=== PATIENT | male | born 1950 | race Caucasian/White ===

== ENCOUNTER 2017-03-21 13:19 | Emergency (ER) | payer OTHER ==
[~2017-03-21] VITALS: Ht 185.4 cm; Wt 95.3 kg
[2017-03-21] MEDS ORDERED: TETANUS-DIPTH-ACEL PERTUSSIS 0.5ML SYRG IM ONE (14:00)
[2017-03-21] MEDS ORDERED: LIDOCAINE 2%HCL (LOCAL ANESTH.) INJ 20ML MDV ID ONE (14:00)
[2017-03-21] MEDS ORDERED: BACITRACIN TOP OINT 1 UD PKG TOP ONE (14:00)
[2017-03-21 15:19] VITALS: BP 165/89
== END 2017-03-21 15:39 | disposition home or self-care (01) ==
LOC: ER 13:27
DX: S01.01XA Laceration without foreign body of scalp, initial encounter (principal); W01.0XXA Fall on same level from slipping, tripping and stumbling without subsequent striking against object, initial encounter; Y93.89 Activity, other specified; Y92.098 Other place in other non-institutional residence as the place of occurrence of the external cause; Y99.8 Other external cause status; Z88.0 Allergy status to penicillin; Z23 Encounter for immunization
CPT/HCPCS: 12005; 70450; 90471; 90715

== ENCOUNTER 2018-01-07 10:45 | Emergency (ER) | payer OTHER ==
[~2018-01-07] VITALS: Ht 182.9 cm; Wt 95.3 kg
[2018-01-07] MEDS: ceFAZolin 1GM/50ML 50 ML IV ONE (12:01)
[2018-01-07] MEDS: NEOMYCIN-BACITRACIN-POLYM UNITDOSE PKG TOP OINT TOP ONE (12:03)
[2018-01-07] MEDS: LIDOCAINE 1% (LOCAL ANESTH.) PF 5ml SDV ID ONE (12:03)
[2018-01-07 13:30] VITALS: BP 122/63
[2018-01-07] MEDS: KETOROLAC TROMETH 30 MG/ML 1ML VIAL IV ONE (14:48)
== END 2018-01-07 15:26 | disposition home or self-care (01) ==
LOC: ER 10:46
DX: S71.111A Laceration without foreign body, right thigh, initial encounter (principal); E78.5 Hyperlipidemia, unspecified; E07.9 Disorder of thyroid, unspecified; Z88.0 Allergy status to penicillin; W31.89XA Contact with other specified machinery, initial encounter; Y93.89 Activity, other specified; Y99.8 Other external cause status; Y92.89 Other specified places as the place of occurrence of the external cause
CPT/HCPCS: 12032; 96365; 96375; 99284; J0690; J1885

== ENCOUNTER 2018-01-09 11:06 | Emergency (ER) | payer OTHER ==
[~2018-01-09] VITALS: Ht 182.9 cm; Wt 95.3 kg
[2018-01-09 11:16] VITALS: BP 148/74
== END 2018-01-09 11:41 | disposition home or self-care (01) ==
LOC: ER 11:06
DX: S71.111D Laceration without foreign body, right thigh, subsequent encounter (principal); Z48.01 Encounter for change or removal of surgical wound dressing; Z88.0 Allergy status to penicillin; X58.XXXD Exposure to other specified factors, subsequent encounter

== ENCOUNTER 2018-01-13 09:53 | Inpatient (IN) | payer OTHER ==
[~2018-01-13] VITALS: Ht 180.3 cm; Wt 90.8 kg
[2018-01-13] MEDS ORDERED: SODIUM CHLORIDE 0.9% 1,000 ML IV ONE ×2 (10:37)
[2018-01-13 10:54] LABS: Basophils # (auto) 0.1 uL; Basophils % (auto) 0.8 % (0.0-2.0); Eosinophils # (auto) 0.2 uL; Eosinophils % (auto) 2.2 % (0.0-7.0); Hemoglobin 11.9 g/dL (13.5-17.5); Lymphocytes # (auto) 1.4 uL; Lymphocytes % (auto) 16.5 % (10.0-50.0); Mean Corpuscular Hemoglobin 31.9 pg (28.0-32.0); Mean Corpuscular Hgb Conc. 32.9 g/dL (32.0-36.0); Mean Corpuscular Volume 96.8 fL (80.0-100.0); Monocytes # (auto) 0.8 uL; Monocytes % (auto) 9.4 % (0.0-12.0); Neutrophils # (auto) 5.9 uL; Neutrophils % (auto) 71.1 % (37.0-80.0); Nucleated Red Blood Cells % 0.1 %; Platelet Count (auto) 258 10^3/uL (140-450); Red Blood Cells 3.72 10^6/uL (4.5-5.90); Red Cell Distribution Width 13.8 % (11.8-14.3); White Blood Cell 8.3 10^3/uL (4.4-10.8)
[2018-01-13 11:02] LABS: INR 0.88 (0.9-1.15); Partial Thromboplastin Time 29.4 sec (23.78-33.04); Prothrombin Time 9.5 sec (9.27-12.13)
[2018-01-13 11:22] LABS: Alanine Aminotransferase 36 U/L (16-61); Albumin 3.4 g/dL (3.4-5.0); Alkaline Phosphatase 75 U/L (45-117); Anion Gap 7 (5-15); Aspartate Aminotransferase 25 U/L (15-37); BUN/Creatinine Ratio 20.2; Bilirubin, Total 1.7 mg/dL (0.2-1.0); Blood Urea Nitrogen 17 mg/dL (7-18); Calcium 8.9 mg/dL (8.5-10.1); Carbon Dioxide 24 mmol/L (21-32); Chloride 106 mmol/L (98-107); GFR African American 117 mL/min; GFR Non-African American 97 mL/min; Glucose 101 mg/dL (74-106); Potassium 4.1 mmol/L (3.5-5.1); Sodium 137 mmol/L (136-145); Total Protein 7.4 g/dL (6.4-8.2)
[2018-01-13] MEDS ORDERED: VANCOMYCIN 1GM/250ML 250 ML IV ONE (11:30)
[2018-01-13] MEDS ORDERED: ONDANSETRON HCL 4 MG/2 ML VIAL IV PRN (12:15)
[2018-01-13] MEDS ORDERED: cefTRIAXone 1GM/10ml IVPUSH 10 ML IV ONE (12:15)
[2018-01-13] MEDS ORDERED: ACETAMINOPHEN 325 MG TAB PO PRN (12:15)
[2018-01-13] MEDS ORDERED: MORPHINE SULFATE 4 MG/ML SYR/VIAL IV PRN (12:15)
[2018-01-13] MEDS ORDERED: LEVOTHYROXINE SODIUM 50 MCG TAB PO ONE (12:15)
[2018-01-13] MEDS ORDERED: DOCUSATE SOD 100 MG CAP PO PRN (12:15)
[2018-01-13] MEDS: HYDROcodone-ACET 5/325MG TAB PO PRN ×2 (12:43→21:46)
[2018-01-13] MEDS: CLINDAMYCIN 300MG IV 50 ML IV SCH ×2 (14:26→21:47)
[2018-01-13] MEDS: SODIUM CHLOR 0.9% PF (SALINE LOCK) 10ML VIAL/SYR IV SCH ×2 (14:27→21:47)
[2018-01-13 17:11] VITALS: BP 154/78
[2018-01-13 18:04] VITALS: BP 154/78
[2018-01-13] MEDS ORDERED: TAM04C PO (18:59)
[2018-01-13] MEDS ORDERED: MELO1TAB56 PO (18:59)
[2018-01-13] MEDS ORDERED: LEVO125T7 PO (18:59)
[2018-01-13] MEDS ORDERED: BACL10TA PO (18:59)
[2018-01-13] MEDS ORDERED: PRAV20TA3 PO (18:59)
[2018-01-13] MEDS: BACLOFEN 10 MG TAB PO PRN (21:44)
[2018-01-13] MEDS: ASCORBIC ACID 500 MG TAB PO SCH (21:45)
[2018-01-13] MEDS: PRAVASTATIN SODIUM 20 MG TAB PO SCH (21:45)
[2018-01-13 22:00] VITALS: BP 136/69
[2018-01-13] MEDS ORDERED: TAMSULOSIN HYDROCHLORIDE 0.4 MG CAP PO SCH (22:00)
[2018-01-13 22:39] LABS: Urine Bacteria NONE SEEN /hpf (None Seen); Urine Blood Negative /uL (Negative); Urine Specific Gravity 1.013 (1.001-1.035); Urine WBC 1 /hpf (0 - 3)
[2018-01-13] MEDS: TEMAZEPAM 15 MG CAP PO PRN (23:30)
[2018-01-14] MEDS: HYDROcodone-ACET 5/325MG TAB PO PRN ×3 (03:57→22:09)
[2018-01-14 05:00] VITALS: BP 136/69
[2018-01-14] MEDS: CLINDAMYCIN 300MG IV 50 ML IV SCH ×3 (06:11→22:08)
[2018-01-14] MEDS: LEVOTHYROXINE SODIUM 50 MCG TAB PO SCH (06:12)
[2018-01-14] MEDS: SODIUM CHLOR 0.9% PF (SALINE LOCK) 10ML VIAL/SYR IV SCH ×3 (06:12→22:10)
[2018-01-14 06:53] LABS: Basophils # (auto) 0 uL; Basophils % (auto) 0.4 % (0.0-2.0); Eosinophils # (auto) 0.2 uL; Eosinophils % (auto) 2.5 % (0.0-7.0); Hematocrit 32.6 % (41.0-53.0); Mean Corpuscular Hgb Conc. 33.8 g/dL (32.0-36.0); Mean Corpuscular Volume 97.7 fL (80.0-100.0); Monocytes # (auto) 0.7 uL; Monocytes % (auto) 9.4 % (0.0-12.0); Neutrophils # (auto) 5.9 uL; Neutrophils % (auto) 74.7 % (37.0-80.0); Platelet Count (auto) 228 10^3/uL (140-450); Red Blood Cells 3.33 10^6/uL (4.5-5.90); Red Cell Distribution Width 13.8 % (11.8-14.3); White Blood Cell 7.9 10^3/uL (4.4-10.8)
[2018-01-14 07:11] LABS: BUN/Creatinine Ratio 21.1; Calcium 8.4 mg/dL (8.5-10.1); Potassium 4.1 mmol/L (3.5-5.1)
[2018-01-14 07:14] LABS: Bilirubin, Total 1.3 mg/dL (0.2-1.0); Total Protein 6.5 g/dL (6.4-8.2)
[2018-01-14 08:53] VITALS: BP 136/54
[2018-01-14] MEDS: ZINC SULFATE 220mg CAP or TAB PO SCH (09:45)
[2018-01-14] MEDS: MULTIPLE VITAMIN TAB PO SCH (09:45)
[2018-01-14] MEDS: ASCORBIC ACID 500 MG TAB PO SCH ×2 (09:45→22:09)
[2018-01-14] MEDS: TAMSULOSIN HYDROCHLORIDE 0.4 MG CAP PO SCH ×2 (09:45→18:44)
[2018-01-14] MEDS: cefTRIAXone 1GM/10ml IVPUSH 10 ML IV SCH (09:46)
[2018-01-14] MEDS: ENOXAPARIN SOD 40 MG/0.4 ML SYRINGE SC SCH (09:46)
[2018-01-14] MEDS ORDERED: MELOXICAM 7.5 MG PO SCH (10:00)
[2018-01-14 12:59] VITALS: BP 121/70
[2018-01-14] MEDS: IBUPROFEN 600 MG TAB PO SCH (18:44)
[2018-01-14 22:00] VITALS: BP 130/66
[2018-01-14] MEDS: PRAVASTATIN SODIUM 20 MG TAB PO SCH (22:08)
[2018-01-14] MEDS: BACLOFEN 10 MG TAB PO PRN (22:09)
[2018-01-15 05:00] VITALS: BP 126/56
[2018-01-15] MEDS: SODIUM CHLOR 0.9% PF (SALINE LOCK) 10ML VIAL/SYR IV SCH ×3 (06:25→22:24)
[2018-01-15] MEDS: LEVOTHYROXINE SODIUM 50 MCG TAB PO SCH (06:25)
[2018-01-15] MEDS: CLINDAMYCIN 300MG IV 50 ML IV SCH ×3 (06:25→22:23)
[2018-01-15 07:42] LABS: Basophils # (auto) 0 uL; Basophils % (auto) 0.5 % (0.0-2.0); Eosinophils # (auto) 0.2 uL; Eosinophils % (auto) 3.4 % (0.0-7.0); Hematocrit 33.4 % (41.0-53.0); Hemoglobin 11.1 g/dL (13.5-17.5); Lymphocytes # (auto) 1.4 uL; Lymphocytes % (auto) 21.2 % (10.0-50.0); Mean Corpuscular Hgb Conc. 33.3 g/dL (32.0-36.0); Mean Corpuscular Volume 99.2 fL (80.0-100.0); Monocytes # (auto) 0.7 uL; Neutrophils # (auto) 4.3 uL; Neutrophils % (auto) 63.9 % (37.0-80.0); Nucleated Red Blood Cells % 0.1 %; Platelet Count (auto) 244 10^3/uL (140-450); Red Blood Cells 3.37 10^6/uL (4.5-5.90); Red Cell Distribution Width 13.9 % (11.8-14.3); White Blood Cell 6.7 10^3/uL (4.4-10.8)
[2018-01-15 07:43] LABS: BUN/Creatinine Ratio 29.3; Calcium 8.8 mg/dL (8.5-10.1); Magnesium 2.8 mg/dL (1.6-2.6); Potassium 4.3 mmol/L (3.5-5.1)
[2018-01-15 09:00] VITALS: BP 123/66
[2018-01-15] MEDS: cefTRIAXone 1GM/10ml IVPUSH 10 ML IV SCH (09:16)
[2018-01-15] MEDS: TAMSULOSIN HYDROCHLORIDE 0.4 MG CAP PO SCH ×2 (09:16→18:58)
[2018-01-15] MEDS: IBUPROFEN 600 MG TAB PO SCH ×3 (09:16→18:59)
[2018-01-15] MEDS: ZINC SULFATE 220mg CAP or TAB PO SCH (10:57)
[2018-01-15] MEDS: ASCORBIC ACID 500 MG TAB PO SCH ×2 (10:58→22:23)
[2018-01-15] MEDS: MULTIPLE VITAMIN TAB PO SCH (10:58)
[2018-01-15] MEDS: ENOXAPARIN SOD 40 MG/0.4 ML SYRINGE SC SCH (11:00)
[2018-01-15 13:00] VITALS: BP 125/64
[2018-01-15 17:00] VITALS: BP 131/71
[2018-01-15 22:03] VITALS: BP 120/71
[2018-01-15] MEDS: PRAVASTATIN SODIUM 20 MG TAB PO SCH (22:23)
[2018-01-15] MEDS: HYDROcodone-ACET 5/325MG TAB PO PRN (22:40)
[2018-01-15] MEDS: TEMAZEPAM 15 MG CAP PO PRN (23:34)
[2018-01-16 05:25] VITALS: BP 129/68
[2018-01-16] MEDS: CLINDAMYCIN 300MG IV 50 ML IV SCH ×3 (06:12→22:05)
[2018-01-16] MEDS: LEVOTHYROXINE SODIUM 50 MCG TAB PO SCH (06:13)
[2018-01-16] MEDS: SODIUM CHLOR 0.9% PF (SALINE LOCK) 10ML VIAL/SYR IV SCH ×4 (06:13→22:07)
[2018-01-16 08:00] VITALS: BP 135/70
[2018-01-16] MEDS: cefTRIAXone 1GM/10ml IVPUSH 10 ML IV SCH (09:10)
[2018-01-16] MEDS: IBUPROFEN 600 MG TAB PO SCH ×3 (09:11→18:57)
[2018-01-16] MEDS: MULTIPLE VITAMIN TAB PO SCH (09:11)
[2018-01-16] MEDS: ENOXAPARIN SOD 40 MG/0.4 ML SYRINGE SC SCH (09:11)
[2018-01-16] MEDS: ASCORBIC ACID 500 MG TAB PO SCH ×2 (09:11→22:05)
[2018-01-16] MEDS: ZINC SULFATE 220mg CAP or TAB PO SCH (09:11)
[2018-01-16] MEDS: TAMSULOSIN HYDROCHLORIDE 0.4 MG CAP PO SCH ×2 (09:11→18:56)
[2018-01-16] MEDS: PANTOPRAZOLE 40 MG TAB PO SCH (10:55)
[2018-01-16] MEDS ORDERED: IOHEXOL 300 MG/ML 100ML BOTTLE IJ ONE (12:23)
[2018-01-16 13:00] VITALS: BP 120/64
[2018-01-16] MEDS ORDERED: LIDOCAINE 1% (LOCAL ANESTH.) PF 5ml SDV ID ONE (15:15)
[2018-01-16 16:45] VITALS: BP 141/63
[2018-01-16] MEDS: BACLOFEN 10 MG TAB PO PRN (22:04)
[2018-01-16] MEDS: PRAVASTATIN SODIUM 20 MG TAB PO SCH (22:04)
[2018-01-16] MEDS: HYDROcodone-ACET 5/325MG TAB PO PRN (22:05)
[2018-01-16 22:41] VITALS: BP 139/69
[2018-01-16] MEDS: TEMAZEPAM 15 MG CAP PO PRN (23:17)
[2018-01-17] MEDS: HYDROcodone-ACET 5/325MG TAB PO PRN ×3 (04:01→22:43)
[2018-01-17 06:22] VITALS: BP 119/63
[2018-01-17] MEDS: CLINDAMYCIN 300MG IV 50 ML IV SCH ×3 (06:34→22:41)
[2018-01-17] MEDS: BACLOFEN 10 MG TAB PO PRN ×3 (06:34→22:41)
[2018-01-17] MEDS: LEVOTHYROXINE SODIUM 50 MCG TAB PO SCH (06:34)
[2018-01-17] MEDS: SODIUM CHLOR 0.9% PF (SALINE LOCK) 10ML VIAL/SYR IV SCH ×5 (06:34→22:42)
[2018-01-17] MEDS: cefTRIAXone 1GM/10ml IVPUSH 10 ML IV SCH (08:54)
[2018-01-17] MEDS: PANTOPRAZOLE 40 MG TAB PO SCH (08:55)
[2018-01-17] MEDS: ZINC SULFATE 220mg CAP or TAB PO SCH (08:55)
[2018-01-17] MEDS: IBUPROFEN 600 MG TAB PO SCH ×3 (08:55→18:24)
[2018-01-17] MEDS: ASCORBIC ACID 500 MG TAB PO SCH ×2 (08:55→22:41)
[2018-01-17] MEDS: ENOXAPARIN SOD 40 MG/0.4 ML SYRINGE SC SCH (08:55)
[2018-01-17] MEDS: MULTIPLE VITAMIN TAB PO SCH (08:55)
[2018-01-17] MEDS: TAMSULOSIN HYDROCHLORIDE 0.4 MG CAP PO SCH ×2 (08:55→18:24)
[2018-01-17 09:00] VITALS: BP 153/72
[2018-01-17] MEDS ORDERED: DOXYCYCLINE 100 MG TAB/CAP PO ONE (10:00)
[2018-01-17 13:00] VITALS: BP 124/59
[2018-01-17 17:00] VITALS: BP 127/76
[2018-01-17 22:30] VITALS: BP 131/67
[2018-01-17] MEDS: PRAVASTATIN SODIUM 20 MG TAB PO SCH (22:41)
[2018-01-17] MEDS: TEMAZEPAM 15 MG CAP PO PRN (23:24)
[2018-01-18] MEDS: HYDROcodone-ACET 5/325MG TAB PO PRN ×2 (04:54→22:05)
[2018-01-18 05:52] VITALS: BP 130/66
[2018-01-18] MEDS: CLINDAMYCIN 300MG IV 50 ML IV SCH ×3 (06:31→22:06)
[2018-01-18] MEDS: LEVOTHYROXINE SODIUM 50 MCG TAB PO SCH (06:32)
[2018-01-18] MEDS: BACLOFEN 10 MG TAB PO PRN ×3 (06:34→22:05)
[2018-01-18] MEDS: SODIUM CHLOR 0.9% PF (SALINE LOCK) 10ML VIAL/SYR IV SCH ×5 (06:35→22:07)
[2018-01-18] MEDS: cefTRIAXone 1GM/10ml IVPUSH 10 ML IV SCH (08:57)
[2018-01-18] MEDS: TAMSULOSIN HYDROCHLORIDE 0.4 MG CAP PO SCH ×2 (08:59→19:03)
[2018-01-18 09:00] VITALS: BP 122/71
[2018-01-18] MEDS: ZINC SULFATE 220mg CAP or TAB PO SCH (09:00)
[2018-01-18] MEDS: MULTIPLE VITAMIN TAB PO SCH (09:00)
[2018-01-18] MEDS: ASCORBIC ACID 500 MG TAB PO SCH ×2 (09:00→22:05)
[2018-01-18] MEDS: PANTOPRAZOLE 40 MG TAB PO SCH (09:00)
[2018-01-18] MEDS: ENOXAPARIN SOD 40 MG/0.4 ML SYRINGE SC SCH (09:00)
[2018-01-18] MEDS: IBUPROFEN 600 MG TAB PO SCH ×3 (09:00→19:04)
[2018-01-18 13:00] VITALS: BP 127/66
[2018-01-18 17:00] VITALS: BP 123/59
[2018-01-18 22:00] VITALS: BP 141/68
[2018-01-18] MEDS: PRAVASTATIN SODIUM 20 MG TAB PO SCH (22:05)
[2018-01-18] MEDS: TEMAZEPAM 15 MG CAP PO PRN (23:14)
[2018-01-19 06:07] VITALS: BP 131/67
[2018-01-19 06:22] LABS: Basophils # (auto) 0 uL; Basophils % (auto) 0.8 % (0.0-2.0); Eosinophils # (auto) 0.3 uL; Eosinophils % (auto) 5.6 % (0.0-7.0); Hematocrit 32.7 % (41.0-53.0); Hemoglobin 11.1 g/dL (13.5-17.5); Lymphocytes # (auto) 1.1 uL; Lymphocytes % (auto) 19.6 % (10.0-50.0); Mean Corpuscular Hemoglobin 33.1 pg (28.0-32.0); Mean Corpuscular Hgb Conc. 34.1 g/dL (32.0-36.0); Mean Corpuscular Volume 97.3 fL (80.0-100.0); Monocytes # (auto) 0.5 uL; Monocytes % (auto) 8.6 % (0.0-12.0); Neutrophils # (auto) 3.6 uL; Neutrophils % (auto) 65.4 % (37.0-80.0); Nucleated Red Blood Cells % 0.1 %; Platelet Count (auto) 277 10^3/uL (140-450); Red Blood Cells 3.36 10^6/uL (4.5-5.90); Red Cell Distribution Width 13.7 % (11.8-14.3); White Blood Cell 5.5 10^3/uL (4.4-10.8)
[2018-01-19] MEDS: SODIUM CHLOR 0.9% PF (SALINE LOCK) 10ML VIAL/SYR IV SCH ×3 (06:26→13:05)
[2018-01-19] MEDS: CLINDAMYCIN 300MG IV 50 ML IV SCH ×2 (06:26→13:05)
[2018-01-19 06:53] LABS: BUN/Creatinine Ratio 27.9; Calcium 9.3 mg/dL (8.5-10.1); Magnesium 2.3 mg/dL (1.6-2.6); Potassium 4.2 mmol/L (3.5-5.1)
[2018-01-19] MEDS: LEVOTHYROXINE SODIUM 50 MCG TAB PO SCH (07:00)
[2018-01-19 09:00] VITALS: BP 147/76
[2018-01-19] MEDS: MULTIPLE VITAMIN TAB PO SCH (09:02)
[2018-01-19] MEDS: ENOXAPARIN SOD 40 MG/0.4 ML SYRINGE SC SCH (09:02)
[2018-01-19] MEDS: ASCORBIC ACID 500 MG TAB PO SCH (09:02)
[2018-01-19] MEDS: ZINC SULFATE 220mg CAP or TAB PO SCH (09:02)
[2018-01-19] MEDS: TAMSULOSIN HYDROCHLORIDE 0.4 MG CAP PO SCH (09:15)
[2018-01-19] MEDS: IBUPROFEN 600 MG TAB PO SCH ×3 (09:15→17:25)
[2018-01-19] MEDS: cefTRIAXone 1GM/10ml IVPUSH 10 ML IV SCH (09:15)
[2018-01-19] MEDS: PANTOPRAZOLE 40 MG TAB PO SCH (09:16)
[2018-01-19 13:00] VITALS: BP 128/69
[2018-01-19 16:37] VITALS: BP 128/69
[2018-01-19 17:00] VITALS: BP 130/58
== END 2018-01-19 17:50 | disposition home health service (06) | DRG 603 ==
LOC: ER 09:53 → OVERFLOW 09:54 → CENTRAL 17:00
PROVIDERS: ADMIT Internal Medicine; ATTEND Internal Medicine
PROC: 02HV33Z Insertion of Infusion Device into Superior Vena Cava, Percutaneous Approach (ICD-10-PCS; principal; 2018-01-16)
PROC: 0J9L3ZZ Drainage of Right Upper Leg Subcutaneous Tissue and Fascia, Percutaneous Approach (ICD-10-PCS; 2018-01-19)
PROC: BH48ZZZ Ultrasonography of Lower Extremity (ICD-10-PCS; 2018-01-19)
DX: L03.115 Cellulitis of right lower limb (principal); E44.1 Mild protein-calorie malnutrition; N40.0 Benign prostatic hyperplasia without lower urinary tract symptoms; D63.8 Anemia in other chronic diseases classified elsewhere; E03.9 Hypothyroidism, unspecified; E11.9 Type 2 diabetes mellitus without complications; E78.5 Hyperlipidemia, unspecified; G89.4 Chronic pain syndrome; M19.90 Unspecified osteoarthritis, unspecified site; Z88.0 Allergy status to penicillin; Z68.27 Body mass index [BMI] 27.0-27.9, adult; Z80.9 Family history of malignant neoplasm, unspecified; Z79.84 Long term (current) use of oral hypoglycemic drugs
CPT/HCPCS: 10022; 36415; 36569; 71045; 73701; 76881; 76942; 80048; 80053; 81001; 83605; 83735; 84484; 85025; 85610; 85730; 87040; 87205; 96361; 96365; 96375; 97110; 97116; J0696; J3490